=== PATIENT | female | born 1990 | race Caucasian/White ===

== ENCOUNTER 2021-01-02 00:19 | Observation (INO) ==
[2021-01-02] MEDS ORDERED: Magnesium Sulfate OB PREMIX 4 GM/100 ML BAG IV ONE (00:32)
[2021-01-02] MEDS ORDERED: Buffered Lidocaine 1% SYRIN 1 ml INTRADERM ONE (00:32)
[2021-01-02] MEDS ORDERED: Lactated Ringers 1000 ml BAG 1,000 ML IV ONE (00:32)
[2021-01-02] MEDS ORDERED: Labetalol IV 5 MG/ML 20 ml VIAL IV PUSH ONE (00:37)
[2021-01-02] MEDS ORDERED: Magnesium Sulfate OB PREMIX 40 GM/1,000 ML BAG IVPB SCH (01:00)
[2021-01-02] MEDS ORDERED: Lactated Ringers 1000 ml BAG 1,000 ML IV SCH (01:00)
[2021-01-02 01:18] LABS: ABS Basophils 0.1 10^3/ul (0-0.2); ABS Eosinophils 0.1 10^3/ul (0-0.6); ABS Lymphocytes 2.2 10^3/ul (1.0-4.8); ABS Neutrophils 10.8 10^3/ul (1.5-7.7); Hematocrit 38 % (35-47); Hemoglobin 13.1 g/dL (12.0-16.0); Lymphocyte % 15.7 %; Mean Corpuscular HGB Conc 35 g/dL (31-36); Mean Corpuscular Hemoglobin 32 pg (27-31); Mean Corpuscular Volume 94 fL (80-97); Mean Platelet Volume 8.6 fL (7.4-10.4); Platelet Count 231 10^3/uL (150-450); Red Blood Count 4.07 10^6 /uL (3.70-4.87); Red Cell Distribution Width 14 % (10-15); White Blood Count 14.2 10^3/uL (3.5-10.8)
[2021-01-02] MEDS ORDERED: ceFOXitin 2 GM IVPREMIX 0 GM/0 ML BAG ONE (01:26)
[2021-01-02 01:34] LABS: Activated Partial Thrombo Time 26.1 seconds (26.0-38.0); Albumin 3.1 g/dL (3.2-5.2); Albumin/Globulin Ratio 1.1 (1-3); Calcium 9.6 mg/dL (8.6-10.3); Fibrinogen 391.8 mg/dL (110.8-404.3); Globulin 2.8 g/dL (2-4); INR 0.87 (0.86-1.15); Total Bilirubin 0.3 mg/dL (0.2-1.0); Total Protein 5.9 g/dL (6.4-8.9); Uric Acid 3.9 mg/dL (2.3-6.6)
[2021-01-02 01:35] LABS: Platelet Count 235 10^3/ul (150-450)
[2021-01-02 01:39] LABS: Rapid COVID-19 Molecular Undetected (Undetected)
[2021-01-02 01:56] LABS: Urine Appearance Cloudy; Urine Bilirubin Negative (Negative); Urine Blood Negative (Negative); Urine Color Yellow; Urine Glucose Negative (Negative); Urine Ketones Negative (Negative); Urine Nitrite Negative (Negative); Urine Protein Negative (Negative); Urine Specific Gravity 1.012 (1.002-1.030); Urine Urobilinogen Negative (Negative)
[2021-01-02 01:58] LABS: Urine Benzodiazepine Screen None Detected (None Detect); Urine Cannabinoids Screen Presumptive Positive (None Detect); Urine Opiates Screen None Detected (None Detect)
[2021-01-02 02:03] LABS: Schistocytes ABSENT
[2021-01-02] MEDS ORDERED: Famotidine IV 10 MG/ML 2 ml VIAL (20 mg) IV SLOW PU ONE (02:04)
== END 2021-01-02 07:44 | disposition home or self-care (01) ==
LOC: MCHOBOUT 00:19 → INTOOBSV 00:59 → MCHOB 00:59
PROVIDERS: ADMIT Obstetrics & Gynecology; ATTEND Obstetrics & Gynecology

== ENCOUNTER 2021-01-05 10:54 | Inpatient (IN) ==
[2021-01-05] MEDS ORDERED: Buffered Lidocaine 1% SYRIN 1 ml INTRADERM ONE (11:33)
[2021-01-05] MEDS ORDERED: ceFOXitin 2 GM IVPREMIX 2 GM/50 ML BAG IVPB ONE (11:33)
[2021-01-05] MEDS ORDERED: Sodium Citrate/Citric Acid LIQ 15 ML UDC PO ONE (11:33)
[2021-01-05] MEDS ORDERED: Lactated Ringers 1000 ml BAG 1,000 ML IV ONE (11:33)
[2021-01-05] MEDS ORDERED: Lactated Ringers 1000 ml BAG 1,000 ML IV SCH ×2 (12:00→19:00)
[2021-01-05 13:05] LABS: ABS Basophils 0.1 10^3/ul (0-0.2); ABS Eosinophils 0.1 10^3/ul (0-0.6); ABS Lymphocytes 1.5 10^3/ul (1.0-4.8); ABS Monocytes 0.6 10^3/ul (0-0.8); ABS Neutrophils 10.5 10^3/ul (1.5-7.7); Eosinophil % 0.7 %; Hematocrit 39 % (35-47); Hemoglobin 13.5 g/dL (12.0-16.0); Lymphocyte % 12.1 %; Mean Corpuscular HGB Conc 34 g/dL (31-36); Mean Corpuscular Hemoglobin 32 pg (27-31); Mean Corpuscular Volume 93 fL (80-97); Mean Platelet Volume 9.3 fL (7.4-10.4); Platelet Count 261 10^3/uL (150-450); Red Blood Count 4.24 10^6 /uL (3.70-4.87); Red Cell Distribution Width 14 % (10-15); White Blood Count 12.9 10^3/uL (3.5-10.8)
[2021-01-05 13:15] LABS: Rapid COVID-19 Molecular Undetected (Undetected)
[2021-01-05 13:21] LABS: Urine Benzodiazepine Screen None Detected (None Detect); Urine Cannabinoids Screen Presumptive Positive (None Detect); Urine Opiates Screen None Detected (None Detect)
[2021-01-05] MEDS ORDERED: Morphine PF AMP (0.5MG/ML) 5 MG/10 ML AMP ONE (16:00)
[2021-01-05] MEDS ORDERED: Ondansetron 4 mg VIAL 2 MG/ML 2 ml VIAL ONE (16:01)
[2021-01-05] MEDS ORDERED: Oxytocin 10 UNITS/ML 1 ML VIAL ONE (16:01)
[2021-01-05] MEDS ORDERED: Phenylephrine 40 mcg/mL 10mL (400mcg) SYRINGE ONE (16:01)
[2021-01-05] MEDS ORDERED: Naloxone 0.4 mg VIAL 0.4 mg/ml 1 ml VIAL IV PRN ×2 (16:07→17:04)
[2021-01-05] MEDS ORDERED: HYDROmorphone 1 MG/1 ML SYRINGE IV PRN (16:07)
[2021-01-05] MEDS ORDERED: DiMENhydriNATE IV 50 mg/ml 1 ml VIAL IV PUSH PRN (16:07)
[2021-01-05] MEDS ORDERED: EPHEDrine (Pressors) 50 MG/ML VIAL ONE (16:44)
[2021-01-05] MEDS ORDERED: Midazolam 2 mg/2 ml VIAL 1 mg/ml 2 ml VIAL (2 mg) ONE (16:50)
[2021-01-05] MEDS ORDERED: fentaNYL 100 mcg/2 ml 50 MCG/ML VIAL ONE (16:50)
[2021-01-05] MEDS ORDERED: diPHENhydraMINE IV 50 MG/ML 1 ml VIAL (BENADRYL) IV PRN (17:04)
[2021-01-05] MEDS ORDERED: Ondansetron 4 mg VIAL 2 MG/ML 2 ml VIAL IV PRN (17:04)
[2021-01-05] MEDS ORDERED: Acetaminophen IV 1 GM/100ML 100 ML IV ONE (17:11)
[2021-01-05 17:55] LABS: Urine Appearance Clear; Urine Bilirubin Negative (Negative); Urine Blood Negative (Negative); Urine Color Yellow; Urine Glucose Negative (Negative); Urine Ketones 1+ (Negative); Urine Nitrite Negative (Negative); Urine Protein Negative (Negative); Urine Specific Gravity 1.012 (1.002-1.030); Urine Urobilinogen Negative (Negative)
[2021-01-05] MEDS ORDERED: Glycerin ADULT 2.4 gm SUPP PR PRN (18:03)
[2021-01-05] MEDS ORDERED: Witch Hazel PAD JAR TOPICAL PRN (18:03)
[2021-01-05] MEDS ORDERED: Dibucaine 1% OINT 28.35 GM TUBE PR PRN (18:03)
[2021-01-05] MEDS ORDERED: Oxytocin in LR 20 UNITS/1,000 ML BAG IVPB SCH (19:00)
[2021-01-05] MEDS: Nicotine PATCH 7 MG/24 HR PATCH TRANSDERM SCH (20:47)
[2021-01-06] MEDS: oxyCODONE/Acetamin 5/325 mg TAB PO PRN ×3 (01:12→08:48)
[2021-01-06 06:46] LABS: ABS Eosinophils 0.1 10^3/ul (0-0.6); ABS Lymphocytes 1.1 10^3/ul (1.0-4.8); ABS Monocytes 0.4 10^3/ul (0-0.8); ABS Neutrophils 8.1 10^3/ul (1.5-7.7); Hematocrit 32 % (35-47); Hemoglobin 10.9 g/dL (12.0-16.0); Lymphocyte % 10.8 %; Mean Corpuscular HGB Conc 35 g/dL (31-36); Mean Corpuscular Hemoglobin 33 pg (27-31); Mean Corpuscular Volume 94 fL (80-97); Mean Platelet Volume 8.7 fL (7.4-10.4); Platelet Count 190 10^3/uL (150-450); Red Blood Count 3.36 10^6 /uL (3.70-4.87); Red Cell Distribution Width 14 % (10-15); White Blood Count 9.8 10^3/uL (3.5-10.8)
[2021-01-06] MEDS ORDERED: Measles, Mumps,Rubella VACC 0.5 ML/VIAL SUBCUT ONE (11:26)
[2021-01-06] MEDS: Nicotine PATCH 7 MG/24 HR PATCH TRANSDERM SCH (12:35)
[2021-01-07] MEDS: Nicotine PATCH 7 MG/24 HR PATCH TRANSDERM SCH (08:20)
[2021-01-07] MEDS ORDERED: Measles, Mumps,Rubella VACC 0.5 ML/VIAL ONE (16:53)
[2021-01-08] MEDS: Nicotine PATCH 7 MG/24 HR PATCH TRANSDERM SCH (08:45)
[2021-01-08 11:37] VITALS: BP 129/76
== END 2021-01-08 11:20 | disposition home or self-care (01) | DRG 540 ==
LOC: MCHOBOUT 10:54 → MCHOB 11:41
PROVIDERS: ADMIT Obstetrics & Gynecology; ATTEND Obstetrics & Gynecology

== ENCOUNTER 2023-07-12 05:03 | Inpatient (IN) ==
[2023-07-12 06:20] LABS: ABS Basophils 0.1 10^3/uL (0.0-0.1); ABS Eosinophils 0.2 10^3/uL (0.0-0.5); ABS Monocytes 0.7 10^3/uL (0.0-0.9); ABS Neutrophils 7.9 10^3/uL (1.5-7.6); Eosinophil % 1.8 %; Hematocrit 36.5 % (35-45); Hemoglobin 12.4 g/dL (11.5-14.3); Lymphocyte % 18.3 %; Mean Corpuscular Hemoglobin 30.8 pg (27-33); Mean Corpuscular Volume 90.5 fL (80-97); Mean Platelet Volume 8.3 fL (7.5-11.2); Platelet Count 298 10^3/uL (150-450); Red Blood Count 4.03 10^6/uL (3.63-4.92); Red Cell Distribution Width 13.8 % (12-17); White Blood Count 10.8 10^3/uL (3.8-11.8)
[2023-07-12] MEDS: Lactated Ringers 1000 ml BAG 1,000 ML IV ONE (07:46)
[2023-07-12] MEDS: ceFOXitin 2 GM IVPREMIX 2 GM/50 ML BAG IVPB ONE (07:46)
[2023-07-12] MEDS: Sodium Citrate/Citric Acid LIQ 15 ML UDC PO ONE (07:46)
[2023-07-12 08:54] LABS: Urine Appearance Clear; Urine Bilirubin Negative (Negative); Urine Blood Negative (Negative); Urine Color Colorless; Urine Glucose Negative (Negative); Urine Ketones Negative (Negative); Urine Nitrite Negative (Negative); Urine Protein Negative (Negative); Urine Specific Gravity 1.005 (1.002-1.030); Urine Urobilinogen Negative (Negative); Urine pH 6.5 (5.0-8.0)
[2023-07-12 09:10] LABS: Urine Benzodiazepine Screen None Detected (None Detect); Urine Cannabinoids Screen Presumptive Positive (None Detect); Urine Opiates Screen None Detected (None Detect)
[2023-07-12] MEDS: Buffered Lidocaine 1% SYRIN 1 ml INTRADERM ONE (10:49)
[2023-07-12] MEDS ORDERED: Acetaminophen IV 1 GM/100ML 1,000 MG/100 ML BAG IV PRN (10:51)
[2023-07-12] MEDS ORDERED: Naloxone 0.4 mg VIAL 0.4 mg/ml 1 ml VIAL IV PUSH PRN (10:51)
[2023-07-12] MEDS ORDERED: Ondansetron 4 mg VIAL 2 MG/ML 2 ml VIAL IV PRN (10:51)
[2023-07-12] MEDS ORDERED: Dibucaine 1% OINT 28.35 GM TUBE PR PRN (11:28)
[2023-07-12] MEDS ORDERED: Witch Hazel PAD JAR TOPICAL PRN (11:28)
[2023-07-12] MEDS ORDERED: Glycerin ADULT 2.4 gm SUPP PR PRN (11:28)
[2023-07-12] MEDS: Lactated Ringers 1000 ml BAG 1,000 ML IV SCH (11:40)
[2023-07-12] MEDS ORDERED: Lactated Ringers 1000 ml BAG 1,000 ML IV SCH (12:00)
[2023-07-12] MEDS: Oxytocin in LR 20,000 MILLI.UNIT/1,000 ML BAG IV SCH (20:53)
[2023-07-13 07:12] LABS: ABS Eosinophils 0.2 10^3/uL (0.0-0.5); ABS Monocytes 0.6 10^3/uL (0.0-0.9); ABS Neutrophils 9.2 10^3/uL (1.5-7.6); Eosinophil % 1.9 %; Hematocrit 35.3 % (35-45); Hemoglobin 11.7 g/dL (11.5-14.3); Lymphocyte % 9.5 %; Mean Corpuscular Hgb Conc 33.2 g/dL (31-36); Mean Corpuscular Volume 90.2 fL (80-97); Mean Platelet Volume 7.8 fL (7.5-11.2); Platelet Count 250 10^3/uL (150-450); Red Blood Count 3.91 10^6/uL (3.63-4.92); Red Cell Distribution Width 13.7 % (12-17)
[2023-07-14 08:17] VITALS: BP 132/81
== END 2023-07-14 11:53 | disposition home or self-care (01) | DRG 540 ==
LOC: MCHOBOUT 05:03 → MCHOB 05:18
PROVIDERS: ADMIT Obstetrics & Gynecology; ATTEND Obstetrics & Gynecology